=== PATIENT | male | born 1945 | race Two or more races ===

== ENCOUNTER 2019-03-23 13:21 | Inpatient (IN) | payer OTHER ==
[~2019-03-23] VITALS: Ht 177.8 cm; Wt 78.0 kg
--- NOTE | 2019-03-23 13:50 | NUR ---
PT BIBFAMILY FOR ANXIETY, [facility] PSYCH ADMISSION; PT AAOX4, PT TO BED 7, VSS, NAD NOTED, PENDING MD CAM
[2019-03-23] MEDS ORDERED: LACT1CAP69 PO (14:00)
[2019-03-23] MEDS ORDERED: OMEP20CA10 PO (14:00)
[2019-03-23] MEDS ORDERED: SERT100T12 PO (14:00)
[2019-03-23] MEDS ORDERED: NEFA150T PO (14:00)
[2019-03-23 14:25] LABS: BASOPHILS % (AUTO) 0.6 % (0.0-2.0); EOSINOPHILS % (AUTO) 0.4 % (0.0-6.0); HEMATOCRIT 41 % (39-51); HEMOGLOBIN 14.1 g/dL (13.5-17.5); LYMPHOCYTES # (AUTO) 0.8 /CMM (0.8-4.8); LYMPHOCYTES % (AUTO) 9.8 % (20.0-44.0); MEAN CORPUSCULAR HGB CONC 35 g/dl (31.0-36.0); MEAN CORPUSCULAR VOLUME 91 fL (80-96); MONOCYTES # (AUTO) 0.6 /CMM (0.1-1.30); MONOCYTES % (AUTO) 7.3 % (2.0-12.0); NEUTROPHILS # (AUTO) 6.6 /CMM (1.8-8.9); NEUTROPHILS % (AUTO) 81.9 % (43.0-81.0); PLATELET COUNT (AUTO) 180 /CMM (150-450); RED BLOOD CELL COUNT(AUTO) 4.49 MIL/uL (4.5-6.0); WHITE BLOOD COUNT (AUTO) 8.1 K/uL (4.3-11.0)
[2019-03-23 14:32] LABS: CALCIUM, SERUM 9.8 mg/dL (8.5-10.1); CARBON DIOXIDE 22 mmol/L (21-32); CHLORIDE 106 mmol/L (98-107); CREATININE 1.2 mg/dL (0.6-1.3); GLUCOSE 94 mg/dL (74-106); POTASSIUM 3.8 mmol/L (3.5-5.1); SODIUM SERUM 139 mmol/L (136-145); UREA NITROGEN, BLOOD 18 mg/dL (7-18)
[2019-03-23 14:37] LABS: ALANINE AMINOTRANSFERASE 30 U/L (12-78); ALBUMIN 3.6 g/dL (3.4-5.0); ALCOHOL, BLOOD < 3 mg/dL (0-0); ALKALINE PHOSPHATASE 82 U/L (46-116); ASPARTATE AMINOTRANSFERASE 25 U/L (15-37); BILIRUBIN,DIRECT 0.1 mg/dL (0.0-0.2); BILIRUBIN,TOTAL 0.4 mg/dL (0.2-1.0)
[2019-03-23 14:38] LABS: ACETAMINOPHEN 0 ug/ml (10-30); SALICYLATE 1.8 mg/dL (2.8-20.0)
--- NOTE | 2019-03-23 14:45 | NUR ---
CALLED DIRECTOR BUSINESS TRAVEL (TEOFILO), 30 MIN ETA,
[2019-03-23] MEDS ORDERED: LORAZEPAM 1 MG TABLET ONE ×2 (14:56→16:35)
[2019-03-23] MEDS ORDERED: LORAZEPAM 1 MG TABLET PO ONE ×2 (15:00→17:00)
[2019-03-23 15:22] LABS: APPEARANCE,URINE Clear (CLEAR); BILIRUBIN,URINE Negative (NEGATIVE); BLOOD, URINE Trace-intact Ery/uL (NEGATIVE); COLOR,URINE Yellow (YELLOW); KETONES,URINE 15 (NEGATIVE); LEUKOCYTE ESTERASE ,URINE Negative (NEGATIVE); NITRITE, URINE Negative (NEGATIVE); PH,URINE 7.5 (5.0-8.0); PROTEIN,URINE Negative (NEGATIVE); UGLUCOSE Negative (NEGATIVE); UROBILINOGEN,URINE 0.2 EU/dL (0.2)
[2019-03-23 15:50] LABS: BACTERIA,URINE Rare /HPF (None Seen); RBC,URINE 0-2 /HPF (0-2); SQUAMOUS EPITHELIAL CELL,UR Rare /HPF (None Seen); WBC,URINE 0-2 /HPF (0-3)
--- NOTE | 2019-03-23 16:57 | NUR ---
report given to pinky villatoro for stanley; pt will be transported to gps via w/c
[2019-03-23 17:25] VITALS: BP 151/95
[2019-03-23] MEDS ORDERED: ACETAMINOPHEN 325 MG TABLET PO PRN (17:30)
[2019-03-23] MEDS ORDERED: MAGNESIUM HYDROXIDE 30 ML UDC PO PRN (17:30)
--- NOTE | 2019-03-23 19:14 | NUR ---
GPS/RN-NOTES ADMITTED 74 YEARS OLD MALE PATIENT FROM [facility] ER. PATIENT ON VOLUNTARY STATUS. DR. BEE MADE AWARE WITH ORDERS.VETERINARY MILK SPECIALIST MAGALI ALSO MADE AWARE OF THE ADMISSION.UPON FACE TO FACE ASSESSMENT,PATIENT ALERT ORIENTED X4 AMBULATORY WITH STEADY GAIT. PATIENT'S RIGHT WAS REVIEWED AND COPY WAS GIVEN TO THE PATIENT WITH UNDERSTAND. FULL BODY ASSESSMENT AND CONTRABAND DONE.PATIENT WAS ORIENTED IN THE UNIT AND UNIT POLICIES. PATIENT'S DTR AKANKSHA BARCENAS [phone] MADE AWARE OF THE ADMISSION. WILL ENDORSE TO INCOMING NURSE FOR CONTINUITY OF CARE.
[2019-03-23 19:48] VITALS: BP 147/88
[2019-03-23] MEDS: TEMAZEPAM 7.5 MG CAPSULE PO PRN (22:12)
--- NOTE | 2019-03-24 06:49 | NUR ---
PAGED DR. VENEGAS TO RECONCILE MEDS AWAITING TO CALLBACK. WILL ENDORSE TO NEXT SHIFT NURSE TO FOLLOW UP.
[2019-03-24 07:14] LABS: CHOLESTEROL 157 mg/dL (<200); HDL CHOLESTEROL 48 mg/dL (40-60); LDL 101 mg/dL (0-99); TRIGLYCERIDES 52 mg/dL (30-150)
[2019-03-24 07:15] LABS: ALANINE AMINOTRANSFERASE 32 U/L (12-78); ALBUMIN 3.2 g/dL (3.4-5.0); ALKALINE PHOSPHATASE 71 U/L (46-116); ASPARTATE AMINOTRANSFERASE 37 U/L (15-37); BILIRUBIN,TOTAL 0.6 mg/dL (0.2-1.0); CALCIUM, SERUM 9.5 mg/dL (8.5-10.1); CARBON DIOXIDE 25 mmol/L (21-32); CHLORIDE 108 mmol/L (98-107); CREATININE 1.2 mg/dL (0.6-1.3); GLUCOSE 87 mg/dL (74-106); POTASSIUM 4.4 mmol/L (3.5-5.1); SODIUM SERUM 141 mmol/L (136-145); TOTAL PROTEIN, SERUM 6.4 g/dL (6.4-8.2); UREA NITROGEN, BLOOD 17 mg/dL (7-18)
[2019-03-24 08:00] VITALS: BP 146/95
--- NOTE | 2019-03-24 10:45 | NUR ---
GPS RN NOTE PER DR.KERZUMA BETANCUR FOR PT TO TAKE HIS OWN METAMUCIL
[2019-03-24] MEDS: LACTOBACILLUS RHAMNOSUS GG 1 EACH CAP.SPRINK PO SCH ×2 (10:55→16:13)
[2019-03-24 16:00] VITALS: BP 166/91
[2019-03-24] MEDS: clonazePAM 0.5 MG TABLET PO PRN (16:13)
[2019-03-24 20:20] VITALS: BP 132/93
[2019-03-24] MEDS: LITHIUM CARBONATE 150 MG CAPSULE PO SCH (21:35)
[2019-03-25] MEDS: clonazePAM 0.5 MG TABLET PO PRN ×3 (00:10→20:52)
[2019-03-25] MEDS: TEMAZEPAM 7.5 MG CAPSULE PO PRN (00:56)
[2019-03-25 07:49] LABS: THYROID STIMULATING HORMONE 0.759 uIU/mL (0.358-3.74)
[2019-03-25 08:00] VITALS: BP 150/85
[2019-03-25] MEDS: LACTOBACILLUS RHAMNOSUS GG 1 EACH CAP.SPRINK PO SCH ×2 (08:09→16:29)
[2019-03-25] MEDS: SERTRALINE HCL 50 MG TABLET PO SCH (08:09)
[2019-03-25] MEDS: PANTOPRAZOLE 40 MG TABLET.DR PO SCH (08:09)
--- NOTE | 2019-03-25 11:49 | NUR ---
UR Note: KIRSTEN conducted a live clinical review with the pts case reviewer, Lorena ([phone]), and received authorization ([id number]) until 03/27/19 with a review due on that day if additional days will need to be requested.
--- NOTE | 2019-03-25 14:22 | NUR ---
GROUP NOTE: SW encouraged pt to attend group on this present day discussing discharge planning. Pt refused to attend saying he wanted to stay in his room.
--- NOTE | 2019-03-25 14:56 | NUR ---
RN-CO: DR FREDI JANSEN REGARDING CONSULT.
[2019-03-25 16:00] VITALS: BP 156/90
[2019-03-25 20:54] VITALS: BP 161/88
--- NOTE | 2019-03-25 20:56 | NUR ---
GPS/RN PER PATIENT HE FEELS VERY ANXIOUS, CLONAZEPAM WAS GIVEN ORDERED. WILL MONITOR.
[2019-03-25] MEDS: LITHIUM CARBONATE 150 MG CAPSULE PO SCH (22:09)
--- NOTE | 2019-03-25 23:14 | NUR ---
GPS/RN PATIENT VERBALIZED ANXIETY IS BETTER, BP STILL HIGH 177/98. CALLED [facility], SPOKE TO KEVIN VENEGAS NP, WITH ORDER TO GIVE HYDRALAZINE 25 MG PO X1. CARRIED OUT.
[2019-03-25] MEDS ORDERED: hydrALAZINE HCL 25 MG TABLET PO ONE (23:30)
--- NOTE | 2019-03-25 23:31 | NUR ---
GPS/RN HYDRALAZINE 25 MG PO WAS GIVEN ORDERED. WILL MONITOR.
[2019-03-26] MEDS: TEMAZEPAM 7.5 MG CAPSULE PO PRN (00:33)
--- NOTE | 2019-03-26 02:20 | NUR ---
GPS/RN BP 164/84, WILL CONTINUE TO MONITOR.
[2019-03-26] MEDS: clonazePAM 0.5 MG TABLET PO PRN (04:18)
--- NOTE | 2019-03-26 04:20 | NUR ---
GPS/RN PATIENT IS VERY ANXIOUS AT THIS TIME, UNABLE TO GET GOOD SLEEP, CLONAZEPAM 0.25 MG PO WAS GIVEN ORDERED. WILL CONTINUE TO MONITOR.
--- NOTE | 2019-03-26 05:33 | NUR ---
GPS/RN PATIENT IS CALM AT THIS TIME, BP 149/85, HR 85, T 98.2. WILL CONTINUE TO MONITOR.
[2019-03-26 05:34] VITALS: BP 149/85
--- NOTE | 2019-03-26 06:29 | NUR ---
GPS/RN DR. VASQUEZ HERE, MADE AWAKE ABOUT PATIENT'S SEVERE ANXIETY LAST NIGHT AND THE MEDICATIONS THAT WERE GIVEN, MD WAS ALSO MADE AWARE ABOUT THE ELEVATED BP OF 177/101, THAT HYDRALAZINE WAS GIVEN.
[2019-03-26 08:00] VITALS: BP 147/72
[2019-03-26] MEDS: PANTOPRAZOLE 40 MG TABLET.DR PO SCH (08:12)
[2019-03-26] MEDS: LACTOBACILLUS RHAMNOSUS GG 1 EACH CAP.SPRINK PO SCH ×2 (08:12→16:18)
[2019-03-26] MEDS: SERTRALINE HCL 50 MG TABLET PO SCH (08:12)
--- NOTE | 2019-03-26 08:15 | NUR ---
RN NOTE: PATIENT STATES THAT HE'S BEEN CONSTIPATED FOR 3 DAYS. PRN MOM GIVEN
--- NOTE | 2019-03-26 12:11 | NUR ---
RN NOTE: PATIENT STATED HE HAD A BOWEL MOVEMENT X2 AFTER TAKING THE MOM AND PRUNE JUICE.
--- NOTE | 2019-03-26 15:23 | NUR ---
KIRSTEN met with the pts daughter, Ivania ([phone]), and the pts friend, Dakota ([phone]), regarding the pts discharge plan. SW stated that the pt has an HMO insurance that has only authorized for the pt to be at the hospital until 03/27/19 as of right now but the SW stated that she will be asking for additional days. SW stated that the pt has expressed his fear of being in his home alone and stated that the recommendation is that the pt move into a board and care or independent living facility. Pts daughter and friend stated that they would discuss their options and then speak to the SW.
--- NOTE | 2019-03-26 15:42 | NUR ---
GROUP NOTE: Pt was present during group discussing the topic of "issues related to your current hospitalization," however left during group due to his daughter and friend visiting.
[2019-03-26 16:00] VITALS: BP 163/94
--- NOTE | 2019-03-26 16:00 | NUR ---
Initial Discharge Plan: Pt currently resides in a mobile home located at [address] [place] [address]; ([phone]). Pt stated that he lives alone and that he would like assistance. SW will work with the pt and the MD regarding appropriate discharge planning. SW will form a safe and proper discharge.
[2019-03-26 20:16] VITALS: BP 162/79
[2019-03-26] MEDS: LITHIUM CARBONATE 150 MG CAPSULE PO SCH (21:28)
[2019-03-26] MEDS: MAG HYDROX/AL HYDROX/SIMETH 30 ML UDC PO PRN (21:28)
[2019-03-27] MEDS: TEMAZEPAM 7.5 MG CAPSULE PO PRN (00:45)
[2019-03-27] MEDS: clonazePAM 0.5 MG TABLET PO PRN ×3 (02:14→20:35)
[2019-03-27 08:00] VITALS: BP 162/85
[2019-03-27] MEDS: LACTOBACILLUS RHAMNOSUS GG 1 EACH CAP.SPRINK PO SCH ×2 (08:01→16:17)
[2019-03-27] MEDS: PANTOPRAZOLE 40 MG TABLET.DR PO SCH (08:02)
[2019-03-27] MEDS: SERTRALINE HCL 50 MG TABLET PO SCH (08:02)
--- NOTE | 2019-03-27 09:00 | NUR ---
RN NOTE: PATIENT'S BP 162/85 P 74; NO PRN/ATC BP MEDS. CONTACTED VIVIENNE, AWAITING REPLY. Addendum: 03/27/19 at 1322 by ENRIQUE CALLAHAN RN NEW SET OF VS TAKEN WITH BP 156/93 P 71; INFORMED DEJUAN PALAFOX WITH NNO FOR PRN.
--- NOTE | 2019-03-27 11:59 | NUR ---
RN NOTE: PATIENT STATED HE WAS FEELING ANXIOUS. PRN KLONOPIN WAS GIVEN.
--- NOTE | 2019-03-27 12:34 | NUR ---
UR Note: SW left a clinical review on the pts caseworker protective services mailLorena ([phone]), asking for additional authorization.
--- NOTE | 2019-03-27 13:01 | NUR ---
SW called the pt's social media senior associate at [facility], Lilibeth ([phone]), and left her a voicemail stating that the SW would like to be in contact regarding the pts case.
--- NOTE | 2019-03-27 13:02 | NUR ---
SW met with the pt and the psychologist, Dr. Clifford ([phone]), and discussed the pts discharge plan. It was agreed upon that the pt cannot live alone at his home and that the pt needs additional support. SW expressed that the pt be discharged to an independent living or a board and care facility. Pt stated that he was worried about his mobile home and his daughter and it was expressed to him that he needs to focus on solutions to his problems.
--- NOTE | 2019-03-27 14:27 | NUR ---
UR Note: KIRSTEN received a call from [employer] ([phone]), and received authorization ([id number]) until 03/28/19 with a review due on that day if additional days will need to be requested.
--- NOTE | 2019-03-27 15:47 | NUR ---
KIRSTEN met with the pts daughter, Ivania ([phone]), with the pt present and discussed a discharge plan of the pt needing a psychiatrist once he is released from the hospital and also discussed that his discharge date would be on Monday.
[2019-03-27 16:00] VITALS: BP 140/81
[2019-03-27 20:01] VITALS: BP 163/84
[2019-03-27] MEDS: LITHIUM CARBONATE 150 MG CAPSULE PO SCH (21:26)
[2019-03-27 22:03] VITALS: BP 157/85
[2019-03-28] MEDS: TEMAZEPAM 7.5 MG CAPSULE PO PRN (02:39)
[2019-03-28 08:00] VITALS: BP 146/74
[2019-03-28] MEDS: PANTOPRAZOLE 40 MG TABLET.DR PO SCH (08:44)
[2019-03-28] MEDS: LACTOBACILLUS RHAMNOSUS GG 1 EACH CAP.SPRINK PO SCH ×2 (08:44→16:44)
[2019-03-28] MEDS: SERTRALINE HCL 25 MG TABLET PO SCH (08:45)
--- NOTE | 2019-03-28 13:40 | NUR ---
KIRSTEN called Lilibeth ([phone]) from [facility] and left her a message stating that the SW would like to contact her for some support.
--- NOTE | 2019-03-28 15:39 | NUR ---
KIRSTEN spoke with the pts daughter, Ivania ([phone]), and informed her that the pts discharge will be tomorrow and she stated she would like to picking machine operator helper the pt after 2pm. KIRSTEN stated that she left a message for Lilibeth at the [employer] and is hoping to make contact. KIRSTEN also stated that she is in the process of looking for a psychiatrist for the pt as well as in home support.
--- NOTE | 2019-03-28 15:45 | NUR ---
SW spoke to the pt in his room and he stated that he was feeling extremely anxious about being discharged the next day. The SW stated that he needs to trust the people who are trying to help him and to take deep breaths and to relax.
[2019-03-28 16:00] VITALS: BP 150/86
--- NOTE | 2019-03-28 16:12 | NUR ---
Group Note: Pt refused to attend group on 03/28/19 at 2:30PM due to his depression and anxiety. Pt stated that he wanted to remain in his room.
[2019-03-28] MEDS ORDERED: hydrALAZINE HCL 10 MG TABLET PO PRN (16:30)
[2019-03-28] MEDS: AMLODIPINE BESYLATE 5 MG TABLET PO SCH (16:45)
--- NOTE | 2019-03-28 19:48 | NUR ---
A/O X1, CONFUSED, SON AND VISIT, AMBULATING AROUND, CALM, QUIET, NO APPARENT DISTRESS NOTED. MAORI SPEAKING ONLY. SONALIX WANTS TO BE CALLED ANYTIME IF ANY PROBLEM WILL ARISE.
[2019-03-28 20:00] VITALS: BP 152/93
[2019-03-28] MEDS: LITHIUM CARBONATE 150 MG CAPSULE PO SCH (21:21)
[2019-03-29] MEDS: TEMAZEPAM 7.5 MG CAPSULE PO PRN (02:44)
--- NOTE | 2019-03-29 05:31 | NUR ---
VITALS NOW 144/99, PULSE 84.
[2019-03-29] MEDS: MAG HYDROX/AL HYDROX/SIMETH 30 ML UDC PO PRN (05:54)
[2019-03-29 08:00] VITALS: BP 133/75
[2019-03-29] MEDS: LACTOBACILLUS RHAMNOSUS GG 1 EACH CAP.SPRINK PO SCH (08:00)
[2019-03-29] MEDS: PANTOPRAZOLE 40 MG TABLET.DR PO SCH (08:00)
[2019-03-29] MEDS: SERTRALINE HCL 25 MG TABLET PO SCH (08:00)
[2019-03-29 08:01] VITALS: BP 133/75
[2019-03-29] MEDS: AMLODIPINE BESYLATE 5 MG TABLET PO SCH (08:01)
--- NOTE | 2019-03-29 09:08 | NUR ---
DR. BEE GAVE AN ORDER TO D/C HOME AND TO FOLLOW UP WITH PSYCH AND MEDICAL DOCTORS.
--- NOTE | 2019-03-29 13:54 | NUR ---
KIRSTEN [facility] in [place] and set an appointment for the pt with Dr. Bowles on May 16 at 1pm and she will be referring the pt to a psychiatrist. Addendum: 03/29/19 at 1400 by MARTHA CURTIS [facility] in [place]
--- NOTE | 2019-03-29 14:00 | NUR ---
KIRSTEN spoke with the pts daughter, Ivania ([phone]), and informed her about the control operator flow coat stating that the pt does not need home health referrals because he does not meet their criteria regardless of how many hours the insurance company authorizes. KIRSTEN then informed her about the pts psychiatrist [facility] has to be through a consult from the physician and informed her that an appointment was made for that.
--- NOTE | 2019-03-29 14:18 | NUR ---
GPS DISCHARGE NOTE: PT DISCHARGE HOME AT [address] [place] [address], [address],[place] [address] PICKED UP BY PT DAUGHTER DARBY. PT IN STABLE CONDITION, NO S/S DISTRESS NOTED, PT DENIES SUICIDAL HOMICIDAL IDEATIONS, VISUAL AND AUDITORY HALLUCINATIONS. PATIENT DENIES FEELING DEPRESSED AT THIS TIME, VSS, EXIT CARE DONE PRINTED , SIGN, AND GIVEN TO PT. PRESCRIPTION GIVEN , EXPLAIN. ALL BELONGINGS VALUABLES WAS RETURNED. PT SKIN ASSESSMENT DONE PICTURE PLACED IN THE CHART.
--- NOTE | 2019-03-29 16:39 | NUR ---
Discharge Note: Pt was discharged back to his home located at [address] [facility], [address] [address]; ([phone]). Pts daughter, Ivania ([phone]), and the pts friend, Dakota ([phone]), picked up the pt around 2pm. Upon discharge, the pt appeared to be in a depressed mood and presented with an anxious affect. Pt denied both suicidal and homicidal ideation as well as auditory and visual hallucinations. Pt was provided with resources for caretakers and was set up with an appointment on May 16 at 1PM with the [facility] to get set up with an alternate psychiatrist. Pt will currently be under the care of his psychiatrist, Dr. Odilon Marmolejo, located at [address] [place] [address]; , and a fax was sent to: . Pt will also be under the care of his waitstaff, Dr. Vikas Barrios, located at [address] [place] [address]; .
--- NOTE | 2019-04-01 10:08 | NUR ---
UR Note: KIRSTEN conducted a live discharge clinical with the pts family preservation caseworker, Lorena ([phone] ext [phone]).
== END 2019-03-29 14:10 | disposition home or self-care (01) | DRG 885 ==
LOC: ER 13:34 → GPS 16:49
PROVIDERS: ADMIT Psychiatry & Neurology Psychiatry; ATTEND Registered Nurse
DX: F31.30 Bipolar disorder, current episode depressed, mild or moderate severity, unspecified (principal); E44.1 Mild protein-calorie malnutrition; R45.851 Suicidal ideations; K21.9 Gastro-esophageal reflux disease without esophagitis; F41.9 Anxiety disorder, unspecified; Z68.24 Body mass index [BMI] 24.0-24.9, adult; Z88.8 Allergy status to other drugs, medicaments and biological substances; Z79.899 Other long term (current) drug therapy; K59.00 Constipation, unspecified; E77.8 Other disorders of glycoprotein metabolism; I10 Essential (primary) hypertension
CPT/HCPCS: 36415; 80048-TC; 80053-TC; 80061-TC; 80076-TC; 80164-TC; 80305; 81000-TC; 84439-TC; 84443-TC; 85025-TC; 87081-TC; G0480